=== PATIENT | male | born 1985 | race Caucasian/White ===

== ENCOUNTER 2018-03-12 17:29 | Inpatient (IN) | payer OTHER ==
[~2018-03-12] VITALS: Ht 162.6 cm; Wt 72.6 kg
[2018-03-12 17:30] VITALS: BP 133/80
--- NOTE | 2018-03-12 17:32 | NUR ---
PT KEITHA BLS ON 5150 AND IN RESTRAINTS TO BED 4
--- NOTE | 2018-03-12 17:35 | NUR ---
33 YO M MARTHA ON 515 BY DANIAL KAUFFMAN FOR HOMICIDAL IDEATION/DANGER TO OTHERS OR SELF. PER STATIONARY FIREMAN AND PATIENT,HE HAD AN ARGUMENT WITH HIS AND THREATENED TO HURT HIS . PT REPORTS THAT HE HAD THE URGE TO HURT SOMEONE, PARTICULARLY TO PUT HIS HANDS AROUND HIS OR SON'S NECK AND "SQUEEZE". PATIENT STATED HE NEEDS/WANTS HELP "BEFORE IT IS TOO LATE". PT AAOX4. GCS 15, CMS INTACT. RR EVEN AND UNLABORED, LUNGS CLEAR. ABD SOFT, NON-TENDER. NO APPARENT S/S OF INJURY OR TRAUMA. ER MD NOTIFIED. PT NEEDS MET. SAFETY/SUICIDE PRECAUTIONS IMPLEMENTED, SITTER AT BEDSIDE.
--- NOTE | 2018-03-12 17:47 | NUR ---
DR MCWILLIAMS EVALUATING AT BEDSIDE
[2018-03-12 17:57] LABS: BASOPHILS % (AUTO) 0.7 % (0.0-2.0); EOSINOPHILS % (AUTO) 0.7 % (0.0-4.0); HEMOGLOBIN 15.6 g/dL (12.0-18.0); LYMPHOCYTES # (AUTO) 2.2 K/uL (2.0-11.5); LYMPHOCYTES % (AUTO) 34.8 % (20.5-51.1); MEAN CORPUSCULAR HEMOGLOBIN 31 pg (27-31); MEAN CORPUSCULAR HGB CONC 34 g/dL (33-37); MEAN CORPUSCULAR VOLUME 90.2 fL (80-94); MONOCYTES # (AUTO) 0.5 K/uL (0.8-1.0); MONOCYTES % (AUTO) 8.1 % (1.7-9.3); NEUTROPHILS # (AUTO) 3.5 K/uL (1.8-7.7); NEUTROPHILS % (AUTO) 55.7 % (42.2-75.2); PLATELET COUNT (AUTO) 239 K/uL (140-450); WHITE BLOOD COUNT (AUTO) 6.3 K/uL (4.8-10.8)
[2018-03-12] MEDS ORDERED: CARB100T PO (17:57)
[2018-03-12 18:00] LABS: APPEARANCE,URINE CLEAR (CLEAR); BILIRUBIN,URINE NEGATIVE (NEGATIVE); BLOOD, URINE TRACE-I (NEGATIVE); COLOR,URINE YELLOW (YELLOW); LEUKOCYTE ESTERASE ,URINE NEGATIVE (NEGATIVE); NITRITE, URINE NEGATIVE (NEGATIVE); UGLUCOSE NEGATIVE (NEGATIVE)
[2018-03-12 18:06] LABS: BARBITURATE, URINE NEG. ng/ml (NEG <=200); BENZODIAZEPINE, URINE NEG. ng/mL (NEG <=200); CANNABINOID, URINE POS. ng/mL (NEG <=50); COCAINE, URINE NEG. ng/mL (NEG <=300); OPIATE, URINE NEG. ng/mL (NEG <=2000); PHENCYCLIDINE SCREEN,URINE NEG. ng/mL (NEG <=25)
[2018-03-12 18:16] LABS: ALBUMIN 4.4 g/dL (3.4-5.0); ANION GAP 15.4 (8-16); ASPARTATE AMINOTRANSFERASE 20 U/L (15-37); CARBON DIOXIDE 24.7 mmol/L (21-32); CHLORIDE 101 mmol/L (98-107); CREATININE 0.9 mg/dL (0.7-1.3); GFR ARICAN-AMERICAN 127 mL/min (>90); GLUCOSE 109 mg/dL (74-106); POTASSIUM 3.1 mmol/L (3.5-5.1); SODIUM SERUM 138 mmol/L (136-145); TOTAL BILIRUBIN 0.2 mg/dL (0.0-1.0); UREA NITROGEN, BLOOD 9 mg/dL (7-18)
[2018-03-12 18:20] LABS: ACETAMINOPHEN < 0.5 ug/ml (10-30); SALICYLATE < 2.8 mg/dL (2.8-20.0)
[2018-03-12 18:22] LABS: RBC,URINE 0-5 (RARE) /HPF (0-5); WBC,URINE 0-5 (RARE) /HPF (0-5)
--- NOTE | 2018-03-12 18:30 | NUR ---
PT RESTING COMFORTABLY IN [facility] AT THIS TIME W/ VSS, SAFETY PRECAUITIONS IN PLACE. WILL CONTINUE TO MONITOR.
[2018-03-12] MEDS ORDERED: POTASSIUM CHLORIDE 10 MEQ TABER PO ONE (18:55)
--- NOTE | 2018-03-12 19:26 | NUR ---
TRANSFER OF CARE AT THIS TIME, REPORT GIVEN TO MILLA CARROLL RN
--- NOTE | 2018-03-12 19:43 | NUR ---
Patient appears to be resting comfortably in bed. Vital Signs within normal limits. Respirations even and unlabored.
--- NOTE | 2018-03-12 20:00 | NUR ---
PT IN BED RESITING WITH EYES OPEN. COOPERATIVE AND CALM. EMT SITTER AT BEDSIDE. VSS. ER MD AWARE. CONTINUE TO MONITOR.
--- NOTE | 2018-03-12 21:00 | NUR ---
PT IN BED RESITING WITH EYES OPEN. COOPERATIVE AND CALM. EMT SITTER AT BEDSIDE. VSS. ER MD AWARE. CONTINUE TO MONITOR.
--- NOTE | 2018-03-12 21:56 | NUR ---
[id number] fax received, will work on placement.
--- NOTE | 2018-03-12 22:43 | NUR ---
Called the following facilities for bed placement: [facility], spoke with Alvin, no beds available. [facility], spoke with Amado, no beds available. Packet was faxed to [phone]. [facility], spoke with Joya, no beds available. [facility] and left a voice message to return my call. [facility], spoke with Bebe, no beds available. [facility], spoke with Shy, no beds available. [facility], spoke with Katelyn, no beds available. Packet was faxed to [phone]. Will have next shift follow-up
[2018-03-12] MEDS ORDERED: ACETAMINOPHEN 325 MG TAB PO PRN (22:55)
[2018-03-12] MEDS ORDERED: ONDANSETRON 4 MG/2 ML VIAL IVP PRN (22:55)
--- NOTE | 2018-03-12 23:14 | NUR ---
PT IN BED RESTING WITH EYES OPEN. PHYSICIAN AT BEDSIDE FOR EVALUATION. VSS. CALM AND COOPERATIVE. CONTINUE TO MONITOR.
[2018-03-12 23:30] VITALS: BP 118/78
--- NOTE | 2018-03-12 23:30 | NUR ---
RECEIVED PT FROM ER VIA MENA PT AAOX4 PT VERBALIZE TO HAVE AA ARGUMENT WITH HIS AND WAS TO ANGRY THAT CALL THE POLICE HE DENIES TO TRY TO KILL HIMSELF AND TO KILL OTHERS PT COOPERATIVE PT GETTING TO SLEEP PT ORIENTED TO THE FLOOR, HL ON LEFT AC PATENT
[2018-03-12] MEDS ORDERED: LACTULOSE 20 GM/30 ML UDC PO ONE (23:40)
[2018-03-12 23:57] LABS: PROTHROMBIN TIME 10.4 secs (10.8-13.4)
--- NOTE | 2018-03-13 | NUR ---
PT DENIES TO HAVE ANY SUICIDAL IDEATION GETTING SLEEP DENIES TO HAVE ANY INJURY TO ANYBODY
[2018-03-13 00:05] LABS: CHOL/HDL RATIO 3.1 (1-4.5); FREE T4 (FREE THYROXINE) 0.85 ng/dL (0.76-1.46); MAGNESIUM 1.4 mg/dL (1.8-2.4); PHOSPHORUS 3.8 mg/dL (2.5-4.9); THYROID STIMULATING HORMONE 1.86 uIU/mL (0.34-3.74)
--- NOTE | 2018-03-13 01:00 | NUR ---
PT ON CLOSE MONITORING NOT SIGNS OF DISTRESS NOTED ,REMAIN ON CLOSE MONNITORING PT HAS E3N SLEEPING
[2018-03-13] MEDS ORDERED: LACTULOSE 20 GM/30 ML UDC ONE (01:57)
--- NOTE | 2018-03-13 03:00 | NUR ---
PT SLEEPING WELL NOT SIGNS OF DISTRESS NOTED 5150 REMAIN STABLE AT THIS TIME NOT SIGNS OF INJURY, NOT SIGNS OF DISTRESS NOTED
--- NOTE | 2018-03-13 05:00 | NUR ---
MANDY CHANGED PT VERBALIZED TO WANT TO SLEEP, NOT SIGNS OF VIOLENCE NOTED REMAINS STBLE DENIES ANY SUICIDAL IDEATION.
--- NOTE | 2018-03-13 06:00 | NUR ---
TOOL DESIGNER APPRENTICE FROM [employer] IS HERE AND HE IS SITTER FOR 5150 PT MONITORING HIM CLOSE NOT DISTRESS NOTED
[2018-03-13 06:19] LABS: BASOPHILS # (AUTO) 0.1 K/uL (0.00-0.22); BASOPHILS % (AUTO) 0.9 % (0.0-2.0); EOSINOPHILS # (AUTO) 0.1 K/uL (0-0.4); HEMATOCRIT 47.2 % (36-52); LYMPHOCYTES # (AUTO) 3.1 K/uL (2.0-11.5); LYMPHOCYTES % (AUTO) 47.2 % (20.5-51.1); MEAN CORPUSCULAR HEMOGLOBIN 31 pg (27-31); MEAN CORPUSCULAR HGB CONC 34 g/dL (33-37); MEAN CORPUSCULAR VOLUME 90.6 fL (80-94); MONOCYTES # (AUTO) 0.6 K/uL (0.8-1.0); MONOCYTES % (AUTO) 9.5 % (1.7-9.3); NEUTROPHILS # (AUTO) 2.7 K/uL (1.8-7.7); NEUTROPHILS % (AUTO) 40.4 % (42.2-75.2); PLATELET COUNT (AUTO) 238 K/uL (140-450); RED BLOOD CELL COUNT(AUTO) 5.21 MIL/uL (4.20-6.10); RED CELL DISTRIBUTION WIDTH 12.8 % (11.6-13.7); WHITE BLOOD COUNT (AUTO) 6.6 K/uL (4.8-10.8)
[2018-03-13 06:58] LABS: ANION GAP 14.7 (8-16); CARBON DIOXIDE 27.3 mmol/L (21-32); CREATININE 0.9 mg/dL (0.7-1.3)
[2018-03-13 07:08] LABS: MAGNESIUM 1.8 mg/dL (1.8-2.4); PHOSPHORUS 4.7 mg/dL (2.5-4.9)
--- NOTE | 2018-03-13 07:20 | NUR ---
RECEIVED PATIENT FROM EMERGENCY MANAGEMENT SPECIALIST NURSE AT BEDSIDE FOR CONTINUITY OF CARE. PATIENT RESTING IN BED, AOX4, IV TO LEFT AC 20G INTACT, ASYMPTOMATIC, AND PATENT. SALINE LOCKED. UPDATED PLAN OF CARE WITH PATIENT. HE VERBALIZED UNDERSTANDING. DX OF 5150 FOR DANGER TO OTHERS. 1:1 SITTER AT BEDSIDE. SAFETY PRECAUTION IN PLACE, WILL CONTINUE TO MONITOR PATIENT.
[2018-03-13 08:00] VITALS: BP 105/66
--- NOTE | 2018-03-13 08:10 | NUR ---
DAUGHTER AND REQUESTED TO SEE THE PATIENT. THE PATIENT DENIED THIS REQUEST. STATED THAT HE IS STILL ANGRY AT HIS AND DID NOT WANT TO SEE HER. HE WANTED TO CALM DOWN AND RELAX. RN VERBALIZED UNDERSTANDING. WILL CONTINUE TO MONITOR PATIENT.
[2018-03-13] MEDS ORDERED: LORazepam 2 MG/ML VIAL IVP PRN (08:25)
[2018-03-13] MEDS ORDERED: LACTULOSE 20 GM/30 ML UDC PO SCH (08:30)
--- NOTE | 2018-03-13 08:36 | NUR ---
ORDERED MEDICATIONS GIVEN. PATIENT TOLERATING THEM WELL. PATIENT SITTING UP IN BED, NO SIGNS OF DISTRESS OR SOB NOTED ON ROOM AIR. PATIENT DENIES PAIN. SAFETY PRECAUTION IN PLACE, 1:1 SITTER PRESENT, WILL CONTINUE TO MONITOR PATIENT.
--- NOTE | 2018-03-13 08:49 | NUR ---
PATIENT HAS BEEN SCREENED AND CATEGORIZED LOW NUTRITION RISK. PATIENT WILL BE SEEN WITHIN 7 DAYS OF ADMISSION. 03/19/[address]
[2018-03-13] MEDS ORDERED: carBAMazepine 200 MG TAB PO SCH (09:00)
[2018-03-13] MEDS ORDERED: THIAMINE 100 MG TAB PO SCH (09:00)
[2018-03-13] MEDS ORDERED: FOLIC ACID 1 MG TAB PO SCH (09:00)
[2018-03-13] MEDS ORDERED: MULTIVITAMIN 1 TAB PO SCH (09:00)
--- NOTE | 2018-03-13 09:16 | NUR ---
CM NOTE INITIAL REVIEW FAXED TO [facility] [phone] PH# [phone] [facility] EXT [phone] AND TO LAZARA [phone] PH# [phone] [facility] [phone]
--- NOTE | 2018-03-13 09:20 | NUR ---
DR. LUO IN TO SEE THE PATIENT. WILL WAIT FOR HIS EVALUATION.
--- NOTE | 2018-03-13 10:10 | NUR ---
INFORMED DR. TURNER ABOUT DR. LUO'S EVALUATION. WILL AWAIT FOR HIS ORDERS.
--- NOTE | 2018-03-13 11:10 | NUR ---
DISCHARGE ORDER IN. INFORMED PATIENT. WILL START WORKING ON HIS DISCHARGE PAPERS.
--- NOTE | 2018-03-13 11:25 | NUR ---
PATIENT INSTRUCTION AND EDUCATION GIVEN TO PATIENT. PATIENT VERBALIZED UNDERSTANDING. DISCHARGE PAPERWORK SIGNED. RESOURCES FOR PSYCHIATRIC HELP GIVEN TO PATIENT. IV REMOVED, IV CATHETER INTACT, MINIMAL BLOOD NOTED. ID BANDS CUT. PATIENT WILL NOW CHANGE AND GET READY TO BE DISCHARGED.
--- NOTE | 2018-03-13 11:50 | NUR ---
PATIENT AMBULATED OFF FLOOR ON STEADY GAIT WITH JACKY BERMAN. PATIENT TOOK ALL HIS BELONGINGS WITH HIM. PATIENT IN STABLE CONDITION.
== END 2018-03-13 11:50 | disposition home or self-care (01) | DRG 812 ==
LOC: MED 17:29 → MTU 22:53
PROVIDERS: ADMIT General Practice; ATTEND General Practice
DX: T40.7X1A Poisoning by cannabis (derivatives), accidental (unintentional), initial encounter (principal); G92 Toxic encephalopathy; E72.20 Disorder of urea cycle metabolism, unspecified; E87.2 Acidosis; R45.851 Suicidal ideations; K72.90 Hepatic failure, unspecified without coma; F12.20 Cannabis dependence, uncomplicated; E83.42 Hypomagnesemia; F10.129 Alcohol abuse with intoxication, unspecified; R45.850 Homicidal ideations; E87.6 Hypokalemia; E78.5 Hyperlipidemia, unspecified; G40.909 Epilepsy, unspecified, not intractable, without status epilepticus; F33.1 Major depressive disorder, recurrent, moderate; F41.0 Panic disorder [episodic paroxysmal anxiety]; F41.1 Generalized anxiety disorder; Z79.899 Other long term (current) drug therapy; Z91.5 Personal history of self-harm
CPT/HCPCS: 36415; 71045; 80048; 80053; 80156; 80305; 81001; 82140; 82150; 83036; 83605; 83690; 83735; 83880; 84100; 84439; 84443; 84484; 85025; 85610; 85730; 87081; 93005; 99285; G0480; G0482; Q0092

== ENCOUNTER 2020-04-22 21:59 | Emergency (ER) | payer OTHER ==
[~2020-04-22] VITALS: Ht 162.6 cm; Wt 73.9 kg
[~2020-04-22 21:59] MED LIST: CARB100T PO
[2020-04-22 22:11] VITALS: BP 136/63
--- NOTE | 2020-04-22 22:22 | NUR ---
35 Y/O M PRESENTS TO ED C/O EPIGATRIC PAIN ACCOMPANIED BY VOMITING X TODAY. PT STATES THAT HE VOMITED TWICE TODAY. PER PT, TOOK PEPTOBISMOL AND PRESCRIBED MEDICATION, OMEPRAZOLE, WITH NO RELIEF. ABD SOFT, NON-DISTENDED. AIRWAY INTACT, RR EVEN AND UNLABORED. SKIN WARM, AND DRY. LUNG SOUNDS CLEAR UPON AUSCULTATION. VSS. BED LOCKED AND IN LOWEST POSITION, SIDE RAIL UPX1. WILL CONTINUE TO MONITOR. MHX: SEIZURE NKA
--- NOTE | 2020-04-22 22:52 | NUR ---
DR MARADIAGA AT BEDSIDE EVALUATING PT
--- NOTE | 2020-04-22 23:13 | NUR ---
LAB AT BEDSIDE
[2020-04-22 23:28] LABS: BASOPHILS # (AUTO) 0.1 K/uL (0.00-0.22); BASOPHILS % (AUTO) 0.6 % (0.0-2.0); EOSINOPHILS # (AUTO) 0.2 K/uL (0-0.4); EOSINOPHILS % (AUTO) 1.5 % (0.0-4.0); HEMATOCRIT 43.2 % (36-52); HEMOGLOBIN 15.1 g/dL (12.0-18.0); LYMPHOCYTES # (AUTO) 2.6 K/uL (2.0-11.5); LYMPHOCYTES % (AUTO) 23.9 % (20.5-51.1); MEAN CORPUSCULAR HEMOGLOBIN 31 pg (27-31); MEAN CORPUSCULAR HGB CONC 35 g/dL (33-37); MONOCYTES # (AUTO) 0.8 K/uL (0.8-1.0); MONOCYTES % (AUTO) 7.7 % (1.7-9.3); NEUTROPHILS # (AUTO) 7.1 K/uL (1.8-7.7); NEUTROPHILS % (AUTO) 66.3 % (42.2-75.2); PLATELET COUNT (AUTO) 232 K/uL (140-450); RED BLOOD CELL COUNT(AUTO) 4.86 MIL/uL (4.20-6.10); WHITE BLOOD COUNT (AUTO) 10.7 K/uL (4.8-10.8)
[2020-04-22] MEDS ORDERED: LIDOCAINE VISCOUS 2% 20 ML UDC ONE (23:29)
[2020-04-22] MEDS ORDERED: ALUMINUM HYD/MAG/SIMETHICONE 30 ML UDC ONE (23:29)
[2020-04-22] MEDS ORDERED: DICYCLOMINE HCL LIQUID 10 MG/5 ML UDC ONE (23:29)
[2020-04-22] MEDS: DICYCLOMINE HCL LIQUID 20 MG, ALUMINUM HYD/MAG/SIMETHICONE 30 ML, LIDOCAINE VISCOUS 2% ... PO ONE ×3 (23:33)
[2020-04-22 23:46] LABS: ALBUMIN 3.8 g/dL (3.4-5.0); ANION GAP 10.5 (8-16); CARBON DIOXIDE 27.6 mmol/L (21-32); POTASSIUM 3.1 mmol/L (3.5-5.1); TOTAL BILIRUBIN 0.5 mg/dL (0.0-1.0)
[2020-04-23] MEDS: KETOROLAC 30 MG/ML VIAL IM ONE (00:31)
[2020-04-23 00:46] VITALS: BP 136/63
--- NOTE | 2020-04-23 00:46 | NUR ---
Patient discharged with v/s stable. Written and verbal after care instructions given and explained. Patient alert, oriented and verbalized understanding of instructions. Ambulatory with steady gait. All questions addressed prior to discharge. ID band removed. Patient advised to follow up with PMD. Rx of NAPROSYN AND MYLANTA given. Patient educated on indication of medication including possible reaction and side effects. Opportunity to ask questions provided and answered.
== END 2020-04-23 00:46 | disposition home or self-care (01) ==
LOC: MED 21:59
DX: R10.13 Epigastric pain (principal)
CPT/HCPCS: 36415; 80053; 83690; 85025; 96372; 99283; J1885; 96374

== ENCOUNTER 2021-05-14 18:12 | Emergency (ER) | payer OTHER ==
[~2021-05-14] VITALS: Ht 162.6 cm; Wt 72.6 kg
[2021-05-14 18:14] VITALS: BP 143/97
--- NOTE | 2021-05-14 18:46 | NUR ---
per ermd 12 lead was done on pt and cmae back nsr at 71 hr.
[2021-05-14] MEDS ORDERED: ACET-8386 PO (18:48)
[2021-05-14 19:00] VITALS: BP 143/97
--- NOTE | 2021-05-14 19:00 | NUR ---
Patient discharged with v/s stable. Written and verbal after care instructions given and explained. Patient alert, oriented and verbalized understanding of instructions. Ambulatory with steady gait. All questions addressed prior to discharge. ID band removed. Patient advised to follow up with PMD. Rx of HYDROCODONE/ACETAMINOPHEN given. Patient educated on indication of medication including possible reaction and side effects. Opportunity to ask questions provided and answered.
== END 2021-05-14 19:00 | disposition home or self-care (01) ==
LOC: MED 18:12
DX: M79.18 Myalgia, other site (principal); R06.02 Shortness of breath; Z79.899 Other long term (current) drug therapy
CPT/HCPCS: 93005; 99283

== ENCOUNTER 2023-12-16 09:22 | Emergency (ER) | payer OTHER ==
[~2023-12-16] VITALS: Ht 162.6 cm; Wt 77.1 kg
[~2023-12-16 09:22] MED LIST changes: +ACET-8905 PO
[2023-12-16 09:33] VITALS: BP 123/85; PULSE 96; RESP 18; TEMP 97.9; O2SAT 98
[2023-12-16] MEDS ORDERED: ONDANSETRON 4 MG ODT ONE (09:49)
[2023-12-16] MEDS: ONDANSETRON 4 MG ODT PO ONE (09:51)
[2023-12-16 10:04] VITALS: O2SAT 98
[2023-12-16] MEDS ORDERED: ALUMINUM HYD/MAG/SIMETHICONE 30 ML UDC ONE (10:33)
[2023-12-16] MEDS ORDERED: DICYCLOMINE HCL LIQUID 10 MG/5 ML UDC ONE (10:33)
[2023-12-16] MEDS: DICYCLOMINE HCL LIQUID 20 MG, ALUMINUM HYD/MAG/SIMETHICONE 30 ML, LIDOCAINE VISCOUS 2% ... PO SCH (10:36)
[2023-12-16] MEDS ORDERED: BEN10 PO (11:01)
[2023-12-16] MEDS ORDERED: ONDA-188 SL (11:01)
[2023-12-16 11:07] VITALS: BP 122/82; PULSE 88; RESP 16; TEMP 98; O2SAT 99
== END 2023-12-16 11:07 | disposition home or self-care (01) ==
LOC: MED 09:22
DX: A08.4 Viral intestinal infection, unspecified (principal); K21.9 Gastro-esophageal reflux disease without esophagitis; Z79.1 Long term (current) use of non-steroidal anti-inflammatories (NSAID); Z79.899 Other long term (current) drug therapy; Z86.69 Personal history of other diseases of the nervous system and sense organs
CPT/HCPCS: 99283; Q0162

== ENCOUNTER 2024-03-22 15:32 | Emergency (ER) | payer OTHER ==
[~2024-03-22] VITALS: Ht 167.6 cm; Wt 75.3 kg
[~2024-03-22 15:32] MED LIST changes: +BEN10 PO; +ONDA-188 SL
[2024-03-22 15:45] VITALS: BP 126/83; PULSE 94; RESP 16; TEMP 98.6; O2SAT 99
--- NOTE | 2024-03-22 15:52 | NUR ---
PT AMB TO BED 9
[2024-03-22 15:58] VITALS: O2SAT 99
[2024-03-22] MEDS ORDERED: ACET-8905 PO (16:47)
== END 2024-03-22 17:36 | disposition home or self-care (01) ==
LOC: MED 15:32
DX: S52.501A Unspecified fracture of the lower end of right radius, initial encounter for closed fracture (principal); R03.0 Elevated blood-pressure reading, without diagnosis of hypertension; K21.9 Gastro-esophageal reflux disease without esophagitis; Z86.69 Personal history of other diseases of the nervous system and sense organs; Z79.899 Other long term (current) drug therapy; W01.0XXA Fall on same level from slipping, tripping and stumbling without subsequent striking against object, initial encounter; Y92.89 Other specified places as the place of occurrence of the external cause; Y93.89 Activity, other specified; Y99.8 Other external cause status
CPT/HCPCS: 73110; 99283